=== PATIENT | male | born 1980 | race Caucasian/White ===

== ENCOUNTER 2023-11-01 10:35 | Emergency (ER) | payer OTHER, SELFPAY ==
[2023-11-01 10:42] VITALS: BP 131/84
--- NOTE | 2023-11-01 11:14 | ED.GENMED ---
History of Present Illness
General
Chief Complaint: Male Genito-Urinary Symptoms
Source: patient
Time Seen by Provider: 11/01/23 10:56
History of Present Illness
History of Present Illness:
43-year-old male with past medical history of hypertension, hyperlipidemia, CAD, anxiety and depression presenting to the emergency department for evaluation of dysuria that has been ongoing since this past Sunday, continues to worsen despite
starting amoxicillin this past Sunday, saw urology earlier in the week and had a negative urinalysis she was advised to come to the ER for further evaluation. Patient states yesterday he started with a low-grade fever between 99 and 100. Denies
any back or flank pain, nausea or vomiting, hematuria, penile discharge, testicular pain or swelling. 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 Patient
notes that he had not seen a urologist afterwards but saw urology for the first time around a month ago who did a cystoscopy who states everything looked normal. Patient notes that he is sexually active with his only, vaginal intercourse only.
He does state was treated for a yeast infection about 2 weeks ago but symptoms have seemed to all resolve. No other concerns at this time.
Past History
Past History
ED Past Medical History: Other (TIA, HTN); Negative Asthma, HTN, Hypercholesterolemia or NIDDM
ED Past Surgical History: Appendectomy (tumors), Orthopedic (Back surgery, Cervical fusion, Spinal fusion,) and Other (Hernia repair)
Social History
Tobacco: Non-smoker
Alcohol: Occasional
Drug: None
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
Living: with family
Employment: Employed
Review of Systems
Review of Systems
All Other Systems: ROS reviewed and negative except as documented in HPI and ROS
Phy Exam
Physical Exam
Physical Exam:
GENERAL: Alert , in no apparent distress
EYE: conjunctiva clear
Head: Normocephalic atraumatic
NECK: Supple,
ENT: mmm.
LUNGS: no acute respiratory distress
GENITOURINARY: no lesions, sores, or masses appreciated. No urethral discharge however there is some area of irritation/abrasion on the inner surface of the urethra. No gross hematuria noted. No testicular edema/erythema, tenderness or masses.
No hernias. Positive cremasteric reflex bilateral
NEUROLOGICAL: Alert and oriented
SKIN: Warm and dry, skin intact.
MUSCULOSKELETAL: well perfused.
PSYCH: Normal and appropriate interaction.
Scores
Heart Failure Risk
Heart Failure Risk Score: Not Applicable
Heart Score for Chest Pain Patients
STEMI patient?: Not applicable
Withdrawal Assessment of Alcohol
Withdrawal Assessment Completed?: Not applicable
Course
Orders/Labs/Results
Orders:
Orders
11/01/23 11:31
Basic Metabolic Panel Urgent
Complete Blood Count/With Diff Urgent
Urinalysis Reflex To Culture Urgent
Date Specimen was Collected: 11/01/23
Time Specimen was Collected: 11:25
Chlamydia/GC by PCR Urgent
ELO Source: Urine
Specimen Description:
Source:: URINE
Date Specimen was Collected: 11/01/23
Time Specimen was Collected: 11:25
Abnormal Lab Results
11/01/23
11:31
RBC 3.97 L 10^6/uL
(4.70-6.10)
Hgb 12.3 L g/dL
(13.0-18.0)
Hct 35.7 L %
(39.0-52.0)
MPV 11.1 H fL
(7.4-10.4)
Absolute Lymphs (auto) 1.1 L 10^3/uL
(1.2-3.4)
Absolute Monos (auto) 1.2 H 10^3/uL
(0.1-0.6)
Lymphocytes % 13.9 L %
(20.5-51.1)
Monocytes % 14.3 H %
(1.7-9.3)
Carbon Dioxide 31 H mmol/L
(22-30)
Glucose 109 H mg/dl
(70-99)
11/01/23 11:31
11/01/23 11:31
Vital Signs
Initial and Last Documented VS:
Initial Vital Signs
Temp Pulse Resp BP Pulse Ox
99.6 F 94 18 131/84 98
11/01/23 10:42 11/01/23 10:42 11/01/23 10:42 11/01/23 10:42 11/01/23 10:42
Last Documented Vital Signs
Temp Pulse Resp BP Pulse Ox
99.6 F 84 18 125/79 97
11/01/23 10:42 11/01/23 12:12 11/01/23 12:12 11/01/23 12:12 11/01/23 12:12
MDM/Problems Addressed
Differential Diagnosis Includes:
UTI, STI, prostatitis, renal/ureteral colic, abrasion of the urethra
MDM/Problems Addressed:
43-year-old male presenting to the emergency department for evaluation of dysuria that has been ongoing since Sunday. Patient was given amoxicillin which he has been taking with no relief. Reports low-grade fevers at home, temperature of 99.6
while in triage. Reports negative urinalysis done with urology earlier this week. Will check labs, urine, GC chlamydia. Patient's physical exam did reveal some irritation/abrasion to the inner surface of the urethra which could be potential cause
for symptoms. Will consult with urology following.
*Pulse Oximetry
Patient hypoxic: no
*Critical Care Note
Total Time (30-74mins, 75-104mins- exclusive of procedures): Not Applicable
Patient Management
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
Escalation/DeEscalation of care consider admission/obs:
Patient's workup unremarkable. No leukocytosis, no acute kidney injury and urine is negative. GC chlamydia results are negative as well. Case was discussed with urology. No further recommendations other than can continue Azo for symptom relief
as needed. Stable for discharge and outpatient follow-up.
ED Attending Note
-
Portions of this chart may have been created with voice recognition software.� Occasional wrong word or��sound alike� substitutions may have occurred due to the inherent limitations of voice recognition software.
Discharge Plan
Departure
Patient Disposition: Home (Routine Discharge)
Date of Disposition: 11/01/23
Time of Disposition: 12:02
Patient with high blood pressure during this ER visit?: No
Discharge Problem:
Dysuria
Referrals:
UNKNOWN - PT DOES,NOT KNOW [Family Provider] -
Interventions
Interventions:
*Risk Screen - Suicide Last Done: 11/01/23 10:42
*General Assessment Last Done: 11/01/23 10:42
*Neglect/Abuse Screening Last Done: 11/01/23 10:42
ED- Fall Risk Assessment Last Done: 11/01/23 12:13
*ED COVID-19 Vaccine History Last Done: 11/01/23 10:42
*Nursing Disposition Last Done: 11/01/23 12:13
Discharge Date and Time
Discharge Date/Time: 11/01/23 12:18
Print Language: [id number]
[2023-11-01 11:44] LABS: % Basophils 0.4 % (0-2); % Eosinophils 1.9 % (0-6); % Immature Granulocytes 0.2 % (0-0.5); % Lymphocytes 13.9 % (20.5-51.1); % Monocytes 14.3 % (1.7-9.3); % Neutrophils 69.3 % (42.2-75.2); Absolute Eosinophils 0.2 10^3/uL (0-0.7); Absolute Lymphocytes 1.1 10^3/uL (1.2-3.4); Absolute Monocytes 1.2 10^3/uL (0.1-0.6); Absolute Neutrophils 5.6 10^3/uL (1.4-6.5); Hematocrit 35.7 % (39.0-52.0); Hemoglobin 12.3 g/dL (13.0-18.0); Mean Corp Hgb Conc. 34.5 g/dL (33.0-37.0); Mean Corpuscular Volume 89.9 fL (80.0-94.0); Mean Platelet Volume 11.1 fL (7.4-10.4); Nucleated Red Blood Cells % 0 % (-); Platelet Count 191 10^3/uL (130-400); Red Blood Cell Count 3.97 10^6/uL (4.70-6.10); Red Cell Dist. Width 12.5 % (11.5-14.5); White Blood Cell Count 8.1 10^3/uL (4.8-10.8)
[2023-11-01 11:46] LABS: Urine Albumin Trace (Neg - Trace); Urine Bilirubin Negative (Negative); Urine Character Clear (Clear); Urine Color Yellow; Urine Glucose Negative (Negative); Urine Ketone Negative (Negative); Urine Leukocyte Negative (Negative); Urine Nitrite Negative (Negative); Urine Occult Blood Negative (Negative); Urine Specific Gravity 1.015 (<1.030); Urine Urobilinogen Negative (Neg - 1+)
[2023-11-01 11:55] LABS: Blood Urea Nitrogen 13 mg/dl (9-20); Carbon Dioxide 31 mmol/L (22-30); Chloride 99 mmol/L (98-107); Glucose 109 mg/dl (70-99); Potassium 4.4 mmol/L (3.5-5.1); Sodium 138 mmol/L (135-145); eGFR > 60.00
[2023-11-01 12:12] VITALS: BP 125/79
== END 2023-11-01 12:18 | disposition home or self-care (01) ==
LOC: EMR 10:35
PROVIDERS: Physician Assistant Medical; EMERGENCY PHYSICIAN Emergency Medicine
DX: R30.0 Dysuria (principal); R50.9 Fever, unspecified; I10 Essential (primary) hypertension; E78.5 Hyperlipidemia, unspecified; I25.10 Atherosclerotic heart disease of native coronary artery without angina pectoris; F41.9 Anxiety disorder, unspecified; F32.A Depression, unspecified; Z86.73 Personal history of transient ischemic attack (TIA), and cerebral infarction without residual deficits; Z98.1 Arthrodesis status
CPT/HCPCS: 99283; 80048; 81003; 85025; 87491; 87591